=== PATIENT | female | born 1940 | race Caucasian/White ===

== ENCOUNTER → 2017-06-11 | Outpatient (CLI) | payer OTHER ==
[~2017-06-11] MED LIST: ASPIR 8181 M1 PO; BENICAR20 MG PO; CENTRUM SILVER1 EAC2 PO; FLEXERIL PO; KRILL OIL 1,001 EAC1 PO; VITAMIN D-32000 UNIT PO
== END ==
LOC: CAT 07:54
DX: R51 Headache (principal)

== ENCOUNTER 2018-03-25 05:25 | Inpatient (IN) | payer OTHER ==
[2018-03-17 09:21] LABS: HEMATOCRIT 40.4 % (37.0-47.0); MCH 31.2 pg (26.0-34.0); MCHC 34.7 g/dL (28.0-37.0); MCV 89.9 fL (80.0-100.0); RBC 4.49 mil/uL (4.20-5.00); RDW 13.2 % (10.5-14.5); URINE BILIRUBIN NEGATIVE (Negative); URINE BLOOD NEGATIVE (Negative); URINE CLARITY CLEAR; URINE COLOR YELLOW; URINE GLUCOSE-RANDOM* NEGATIVE (Negative); URINE KETONES NEGATIVE (Negative); URINE LEUKOCYTES-REFLEX NEGATIVE (Negative); URINE NITRITE-REFLEX NEGATIVE (Negative); URINE PROTEIN (DIPSTICK) NEGATIVE (Negative); URINE SPECIFIC GRAVITY 1.015 (1.005-1.035); URINE UROBILINOGEN 0.2 E.U./dl (0.2-1.0); WBC 6.5 thou/uL (4.0-11.0)
[2018-03-17 09:29] LABS: ALBUMIN 3.9 g/dL (3.4-5.0); CALCIUM 9.4 mg/dL (8.5-10.1); CREATININE 1.1 mg/dL (0.6-1.0); POTASSIUM 3.9 mmol/L (3.5-5.1)
[2018-03-25] VITALS (7 sets, daily range): BP systolic 113–131; BP diastolic 52–73
[~2018-03-25] VITALS: Ht 157.5 cm; Wt 62.6 kg
--- NOTE | ~2018-03-25 | O ---
[facility] [place] [address] OPERATIVE REPORT Name: JOSE COLORADO Room #: 150-1 ADM IN M.R.#: [id number] Admission: 03/25/18 Attend Phys: Davin Calle MD Discharge: Date of : 42 Report #: [id number] THIS REPORT FOR: //name// CC: Miguelangel Calle DATE OF SERVICE: 03/25/2018 PREOPERATIVE DIAGNOSIS: Right knee osteoarthritis. POSTOPERATIVE DIAGNOSIS: Right knee osteoarthritis. PROCEDURE: Right total knee arthroplasty using Navio public aid eligibility assistant robotic surgery. SURGEON: Davin Calle MD. PATTERNMAKER PLASTICS: Lupe Wong PA-C INDICATION FOR PATTERNMAKER PLASTICS: Throughout the case, extensive retraction and manipulation of knee was required. This was afforded to me by my public aid eligibility assistant. ANESTHESIA: LMA with an adductor canal block. IMPLANTS: A size 6 Legion posterior stabilized femur, size 4 tibia, size 9 polyethylene and size 35 patella. TOURNIQUET TIME: 76 minutes. ESTIMATED BLOOD LOSS: 25 mL. COMPLICATIONS: None. SPECIMENS: None. CONDITION UPON LEAVING THE OPERATING ROOM: Stable. INDICATIONS FOR PROCEDURE: The patient is a 77-year-old female with severe right knee osteoarthritis. She had failed conservative measures for this, and after discussion with her, she elected for right total knee arthroplasty. DESCRIPTION OF PROCEDURE: Risks, benefits, alternatives, complications were discussed in detail with the patient including but not limited to risk of anesthesia, risk of damage to nerves, arteries, blood vessels, risk for infection, bleeding, risk for continued knee pain, need for operation. Informed consent was obtained from the patient. Right knee was appropriately marked in the preoperative holding area. IV clindamycin was given for preoperative [address] [address] OPERATIVE REPORT Name: JOSE COLORADO Room #: 150-1 ADM IN M.R.#: [id number] Admission: 03/25/18 Attend Phys: Davin Calle MD Discharge: Date of : 42 Report #: [id number] antibiotic. She was brought to the operating room and placed in supine position on operating room table. LMA anesthesia was induced without complication. Tourniquet was placed on the right thigh. Right lower extremity was prepped and draped in normal sterile fashion. Timeout was performed properly identifying the patient and procedure as well as the instrumentation and implants. All in the operating room were in agreement. Right lower extremity was exsanguinated, tourniquet was inflated. Tourniquet time was 76 minutes. Standard midline approach to knee was made with 10 blade through the skin. Dissection was taken down to the fascia and deep flaps were developed medially and laterally. Fresh 10 blade was used to make a medial parapatellar arthrotomy, and the knee was inspected. There was a severe medial compartment osteoarthritic change with moderate lateral and patellofemoral involvement. The osteophytes were removed from the femur. ACL and PCL were removed with a 10 blade. Reference pins were then placed in the tibia and the femur, and the optical center sensors were placed. The knee was then digitally mapped out per the standard technique for the Navio system. The femur was sized at a size 6 and the tibia size 4. Flexion and extension gaps were then manipulated using the Navio system for the best balance of the knee. The distal femoral cut was then made using the Navio bur and the size 6, 4-in-1 cutting block was placed. Anterior, posterior and chamfer cuts were made. Attention was turned to the tibia, and drill holes for the tibial resection guide were placed using a Navio system and tibial resection guide was placed and tibial resection was made. A size 4 tibial trial was placed. This was punched and pinned to the tibia. The femoral trial was placed, size 6 and the box cut was made. Size 9 polyethylene was placed. Knee was taken through range of motion, found to have good balance in flexion and extension both manually as well as digitally per the Navio system. 9 mm was taken off the posterior surface of the patella and a size 35 patellar trial button was placed. Knee was taken through range of motion, found to be stable, found to have good balance in flexion and extension with good tracking of the patella. Trial components were removed. Bony ends were thoroughly irrigated with normal saline. Final size 4 tibia, size 6 Legion cobalt chrome femur and a size 35 patella were cemented in place using standard cementation techniques. While the cement cured, a periarticular injection consisting of morphine, ropivacaine, epinephrine, Toradol was placed around the knee joint. After the cement cured, the tourniquet was deflated. Hemostasis was obtained with Bovie cautery. A final size 9 polyethylene was placed. A gram of vancomycin was placed deep in the joint. Fascia was closed with 0 Vicryl, skin was closed with 2-0 Vicryl, 3-0 Monocryl. Dermabond and HOLA dressing was applied. The patient tolerated this procedure well and went to the recovery room under the care of Anesthesia postoperatively. By: [id number] Davin Calle MD /katarzyna
--- NOTE | ~2018-03-25 | EKG ---
[address] [address] ELECTROCARDIOGRAM REPORT Name: JOSE COLORADO Room #: PRE IN [facility].#: [id number] Admission: Attend Phys: Davin Calle MD Discharge: Date of : 42 Report #: [id number] THIS REPORT FOR: //name// [facility] Test Date: 2018-03-17 Test Time: 08:41:01 Pat Name: JOSE COLORADO Department: Room: Gender: F Lead Sprinkler: Mariah HERNÁNDEZ : 1940 Requested By: Davin Calle Order Number: [id number] MD: Silver Lindquist Measurements Intervals [place]itic Rate: 63 P: 50 ID: [id number] QRS: 61 QRSD: 100 T: 62 QT: 400 QTc: 410 Interpretive Statements Sinus rhythm Normal tracing No previous ECG available for comparison Electronically Signed On 03-17-2018 8:45:10 CDT by Silver Lindquist [email or web address] <ELECTRONICALLY SIGNED> By: Silver Lindquist MD, [facility] 03/17/18 0845 [id number] Silver Lindquist MD, FAC /EPI
[~2018-03-25 05:25] MED LIST changes: +LOSARTAN POTAS100 MG PO
[2018-03-26 00:19] VITALS: BP 97/59
[2018-03-26 04:50] VITALS: BP 88/50
[2018-03-26 05:14] VITALS: BP 99/56
[2018-03-26 05:21] LABS: HEMATOCRIT 32.5 % (37.0-47.0); HEMOGLOBIN 10.9 gm/dL (12.0-15.0); MCH 30.6 pg (26.0-34.0); MCHC 33.6 g/dL (28.0-37.0); RBC 3.57 mil/uL (4.20-5.00); RDW 12.7 % (10.5-14.5); WBC 8.7 thou/uL (4.0-11.0)
[2018-03-26 08:46] VITALS: BP 81/55
[2018-03-26 13:25] VITALS: BP 81/55
== END 2018-03-26 14:48 | disposition home or self-care (01) | DRG 470 ==
LOC: 4N 05:25 → TBA 05:25 → PRE 05:39 → 4N 11:04 → PRE 13:06 → 4N 14:18 → PRE 16:17 → ENTRNSPT 03-26 14:38 → EDTRNSPTSTS 03-26 14:42 → 4N 03-26 14:48
PROVIDERS: Orthopaedic Surgery
PROC: 0SRC0JZ Replacement of Right Knee Joint with Synthetic Substitute, Open Approach (ICD-10-PCS; principal; 2018-03-25)
PROC: 8E0Y0CZ Robotic Assisted Procedure of Lower Extremity, Open Approach (ICD-10-PCS; principal; 2018-03-25)
DX: M17.11 Unilateral primary osteoarthritis, right knee (principal); Z88.1 Allergy status to other antibiotic agents; Z88.2 Allergy status to sulfonamides; Z88.8 Allergy status to other drugs, medicaments and biological substances
CPT/HCPCS: 10790; 50010; 50101; 50415; 50954; 51130; 51225; 51771; 53000; 53078; 54118; 56527; 56528; 57095; 57109; 57110; 57113; 57127; 62110; 62900; 70005

== ENCOUNTER → 2018-04-14 | Outpatient (CLI) | payer OTHER | LOC: ULTRA 12:06 | DX: M25.461 Effusion, right knee (principal); Z96.651 Presence of right artificial knee joint ==

== ENCOUNTER → 2018-06-23 | Outpatient (CLI) | payer OTHER | LOC: MRI 08:55 | DX: M25.561 Pain in right knee (principal); I10 Essential (primary) hypertension; E78.5 Hyperlipidemia, unspecified; Z96.651 Presence of right artificial knee joint ==

== ENCOUNTER → 2019-06-11 | Outpatient (CLI) | payer OTHER | LOC: RAD 13:43 | DX: R06.02 Shortness of breath (principal); R05 Cough; I70.0 Atherosclerosis of aorta ==

== ENCOUNTER → 2019-10-07 | Outpatient (CLI) | payer OTHER ==
--- NOTE | 2019-10-07 11:54 | 2DMMODE ---
[facility] [place] [address] 2 D/M-MODE ECHOCARDIOGRAM Name: JOSE COLORADO Room #: REG [facility]#: [id number] Admission: 10/07/19 Attend Phys: Avi Allen MD Discharge: Date of : 42 Report #: [id number] THIS REPORT FOR: //name// APPROVED REPORT Study performed: 10/07/2019 09:27:23 EXAM: Comprehensive 2D, Doppler, and color-flow Echocardiogram Patient Location: Out-Patient Room #: Echo lab 2 Status: routine BSA: 1.61 HR: 55 bpm BP: 144/82 mmHg Rhythm: Bradycardia Other Information Study Quality: Good Indications Dyspnea Hypertension/HDD 2D Dimensions RVDd: 35.35 mm IVSd: 8.10 (7-11mm) LVOT Diam: 19.13 (18-24mm) LVDd: 52.07 mm PWd: 8.46 (7-11mm) Ascending Ao: 24.72 (22-36mm) LVDs: 32.94 (25-40mm) Aortic Root: 29.45 mm IVC: 19.00 mm Volumes Left Atrial Volume (Systole) Single Plane 4CH: 55.51 mL Single Plane 2CH: 51.62 mL LA ESV Index: 37.00 mL/m2 Aortic Valve AoV Peak David.: 1.09 m/s AO Peak Gr.: 4.77 mmHg LVOT Max P.74 mmHg LVOT Max V: 1.09 m/s KIMMY Vmax: 2.86 cm2 Mitral Valve E/A Ratio: 1.1 MV Decel. Time: 142.46 ms [facility] [address] [place] [address] 2 D/M-MODE ECHOCARDIOGRAM Name: COLORADOJOSE M Room #: REG [facility]#: [id number] Admission: 10/07/19 Attend Phys: Avi Allen MD Discharge: Date of : 42 Report #: [id number] MV E Max David.: 1.11 m/s MV A David.: 0.97 m/s MV PHT: 41.31 ms IVRT: 92.27 ms Pulmonary Valve PV Peak David.: 0.83 m/s PV Peak Gr.: 2.78 mmHg Pulmonary Vein P Vein S: 0.57 m/s P Vein A: 0.20 m/s P Vein D: 0.50 m/s P Vein A Dur.: 96.9 msec P Vein S/D Ratio: 1.14 Tricuspid Valve TR Peak David.: 2.73 m/s TR Peak Gr.: 29.78 mmHg PA Pressure: 35.00 mmHg Left Ventricle The left ventricle is normal size. There is normal LV segmental wall motion. There is normal left ventricular wall thickness. Left ventricular systolic function is normal. The left ventricular ejection fraction is within the normal range. LVEF is 60-65%. Grade II - pseudonormal filling dynamics. Right Ventricle The right ventricle is normal size. The right ventricular systolic function is normal. Atria Left atrium is dilated. The right atrium size is normal. Aortic Valve The aortic valve is normal in structure. No aortic regurgitation is present. There is no aortic valvular stenosis. Mitral Valve The mitral valve is normal in structure. Mild to moderate mitral regurgitation. No evidence of mitral valve stenosis. Tricuspid Valve The tricuspid valve is normal in structure. There is mild tricuspid regurgitation. Estimated PAP 35 mmHg There is mild pulmonary hypertension. Pulmonic Valve [facility] [address] [place] [address] 2 D/M-MODE ECHOCARDIOGRAM Name: IRMA COLORADOGEM Shah Room #: REG [facility]#: [id number] Admission: 10/07/19 Attend Phys: Avi Allen MD Discharge: Date of : 42 Report #: [id number] The pulmonary valve is normal in structure. Trace pulmonic regurgitation. Great Vessels The aortic root is normal in size. IVC is normal in size and collapses >50% with inspiration. Pericardium There is no pericardial effusion. <Conclusion> The left ventricle is normal size. There is normal left ventricular wall thickness. Left ventricular systolic function is normal. Grade II - pseudonormal filling dynamics. The right ventricle is normal size. Left atrium is dilated. The aortic valve is normal in structure. Mild to moderate mitral regurgitation. There is mild tricuspid regurgitation. Estimated PAP 35 mmHg <ELECTRONICALLY SIGNED> By: Avi Allen MD 10/07/19 1154 1154 1154 Avi Allen MD /INF
--- NOTE | 2019-10-07 11:57 | EXE ---
[facility] [address] [address] STRESS ECHOCARDIOGRAM Name: MIROSLAVAJOSE M [id number] Admission: 10/07/19 Attend Phys: Avi Allen MD Discharge: Date of : 42 Report #: [id number] THIS REPORT FOR: //name// APPROVED REPORT Study performed: 10/07/2019 10:03:32 Exam: Stress Echocardiogram Indication: Hypertension, Dyspnea Patient Location: Out-Patient Stress Nurse: Emily Graf RN Room #: Echo lab 2 Status: routine Ht: 5 ft 1 in HR: 55 bpm BP: 144/82 mmHg Rhythm: Bradycardia Medical History Cardiac Risk Factors: HTN, FHX of CAD Exercise History: Physically active Procedure The patient underwent an Exercise Stress Test using the Marco Antonio Protocol. Blood pressure, heart rate, and EKG were monitored. An Echocardiogram was performed by optical manufacturing technician in four stages in quad fashion. At peak stress, four selected images were obtained and placed side by side with resting images for comparison. Stress Test Details Stress Test: Exercise stress testing was performed using a Marco Antonio protocol. HR Resting HR: 55 bpm Max Heart Rate (APMHR): 142 bpm Max HR Achieved: 142 bpm Target HR (85% APMHR): 120 bpm % of APMHR: 100 Recovery HR: 76 bpm HR response to stress: Normal HR response to stress BP Resting BP: 144/82 mmHg Max BP: 190/80 mmHg Recovery BP: 162/70 mmHg BP response to stress: Normal blood pressure response to stress. [facility] [address] [place] [address] STRESS ECHOCARDIOGRAM Name: JOSE COLORADO Room #: REG [facility]#: [id number] Admission: 10/07/19 Attend Phys: Avi Allen MD Discharge: Date of : 42 Report #: [id number] ECG Resting ECG: Sinus Rhythm Stress ECG: Sinus Rhythm, nonspecific ST-T abnormalities ST Change: Non-ischemic Clinical Reason for Termination: Maximal effort Exercise duration: 8 min 27 sec Highest Stage Achieved: Stage 3: 3.4 mph at 14% grade. Exercise capacity: 10.1 METs Overall Exercise Capacity for Age: Good Pre-Stress Echo The resting Echocardiogram showed normal left ventricular contractility with an estimated Ejection Fraction of about >55%. The resting echocardiogram demonstrated normal wall motion in all wall segments. Normal wall motion in all segments on baseline images. Post-Stress Echo The stress Echocardiogram showed normal left ventricular contractility with an estimated Ejection Fraction of about 65-70%. Compared to rest, there were no stress-induced wall motion abnormalities. Normal augmentation of wall motion in all segments on post stress images. Clinical No clinical or ECG evidence for ischemia. Conclusion Clinical Response: Non-ischemic Exercise Capacity: Average Stress ECG Response: Non-ischemic Stress Echo Images: Non-ischemic The left ventricle is normal in size and wall thickness in both the rest and stress images. No prior study available for comparison. Other Information Study Quality: Good <Conclusion> [facility] [address] [place] [address] STRESS ECHOCARDIOGRAM Name: JOSE COLORADO Room #: REG [facility].#: [id number] Admission: 10/07/19 Attend Phys: Avi Allen MD Discharge: Date of : 42 Report #: [id number] The left ventricle is normal in size and wall thickness in both the rest and stress images. <ELECTRONICALLY SIGNED> By: Avi Allen MD 10/07/19 1157 1157 1157 Avi Allen MD /INF
== END ==
LOC: CV 09:06
DX: I08.8 Other rheumatic multiple valve diseases (principal); I10 Essential (primary) hypertension; Z88.8 Allergy status to other drugs, medicaments and biological substances; Z88.2 Allergy status to sulfonamides

== ENCOUNTER → 2021-06-23 | Outpatient (CLI) | payer OTHER ==
[2021-06-23 16:18] LABS: CREATININE 1.1 mg/dL (0.6-1.0)
== END ==
LOC: CAT 15:43
PROVIDERS: ATTEND Nurse Practitioner
DX: K57.90 Diverticulosis of intestine, part unspecified, without perforation or abscess without bleeding (principal); N28.1 Cyst of kidney, acquired; I70.0 Atherosclerosis of aorta; K86.89 Other specified diseases of pancreas; R10.32 Left lower quadrant pain; M47.819 Spondylosis without myelopathy or radiculopathy, site unspecified